=== PATIENT | male | born 1970 | race African-American/Black ===

== ENCOUNTER 2020-06-29 23:29 | Emergency (ER) | payer SELFPAY ==
[~2020-06-29] VITALS: Ht 180.3 cm; Wt 68.9 kg
--- NOTE | 2020-06-29 23:40 | NUR ---
INITIAL PT CONTACT. PT PRESENTS TO ED C/O "I NEED SOME BLOOD PRESSURE MEDS" STATES HE NORMALLY TAKES HYDROCHLOROTHIAZIDE. "I KEEP LOSING THEM. THEY KEEP GETTING STOLEN" STATES HE HASNT TAKEN BP MEDS IN APPROX 6 MONTHS. PT DENIES ANY OTHER COMPLAINTS AT THIS TIME. CALL LIGHT AND PERSONAL BELONGINGS WITHIN REACH.
--- NOTE | 2020-06-30 00:16 | NUR ---
PT TO XRAY
[2020-06-30] MEDS ORDERED: HYDROCHLOROTHIAZIDE 25 MG TABLET PO ONE (00:30)
[2020-06-30 00:31] LABS: BASOPHILS % (AUTO) 1 % (0-1); EOSINOPHILS % (AUTO) 1 % (1-7); LYMPHOCYTES % (AUTO) 19 % (22-44); MEAN CORPUSCULAR HEMOGLOBIN 34.4 pg (27.5-34.5); MEAN CORPUSCULAR HGB CONC 33.5 g/dL (33.2-36.2); MEAN PLATELET VOLUME 7.7 fL (7.4-10.4); MONOCYTES % (AUTO) 7 % (2-9); NEUTROPHILS % (AUTO) 72 % (42-75); PLATELET COUNT 196 x10^3/uL (130-400); RED BLOOD COUNT 3.45 x10^6/uL (4.38-5.82); RED CELL DISTRIBUTION WIDTH 14.1 % (9.4-14.8)
[2020-06-30 00:39] LABS: ALANINE AMINOTRANSFERASE 58 U/L (12-78); ALBUMIN 3.3 g/dL (3.4-5.0); ANION GAP 7 mmol/L (5-15); CALCIUM 8.9 mg/dL (8.5-10.1); CHLORIDE 110 mmol/L (98-107); CREATININE 2.22 mg/dL (0.7-1.3)
[2020-06-30 00:41] LABS: ALKALINE PHOSPHATASE 89 U/L (45-117); BILIRUBIN,TOTAL 0.4 mg/dL (0.2-1.0)
[2020-06-30 00:52] LABS: MD NO
--- NOTE | 2020-06-30 01:03 | NUR ---
PT SITTING UPRIGHT ON GURNEY, RESTING COMFORTABLY WITH EYES CLOSED. NADN, VSS. NO NEEDS AT THIS TIME. CALL LIGHT AND BELONGINGS WITHIN REACH
[2020-06-30 02:00] VITALS: BP 188/98
--- NOTE | 2020-06-30 02:00 | NUR ---
Patient given discharge instructions and they have confirmed that they understand the instructions. Patient ambulatory with steady gait.
== END 2020-06-30 02:02 | disposition home or self-care (01) ==
LOC: ED 06-30 00:15
DX: N28.9 Disorder of kidney and ureter, unspecified (principal); I11.9 Hypertensive heart disease without heart failure; R00.0 Tachycardia, unspecified; F15.90 Other stimulant use, unspecified, uncomplicated
CPT/HCPCS: 36415; 71046; 80053; 85025; 93005; 99285